=== PATIENT | female | born 1965 | race Caucasian/White ===

== ENCOUNTER 2018-12-22 17:05 | Emergency (ER) | payer OTHER ==
[2018-12-22] MEDS ORDERED: Bacitracin Oint 1 GM U/D Packet TOP ONE (17:26)
[2018-12-22 17:42] VITALS: BP 162/94; PULSE 82
--- NOTE | 2018-12-22 18:24 | EDM.PDOC ---
ED HPI GENERAL MEDICAL PROBLEM - General Chief Complaint: Laceration Stated Complaint: CUT LEFT INDEX FINGER Time Seen by Provider: 12/22/18 17:30 Source of Information: Reports: Patient History Limitations: Reports: No Limitations - History of Present Illness INITIAL COMMENTS - FREE TEXT/NARRATIVE: 53-year-old female cut her left index finger on a knife while cleaning dishes. 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: - Past Surgical History HEENT Surgical History: Reports: Tonsillectomy Social & Family History - Tobacco Use Smoking Status *Q: Never Smoker - Caffeine Use Caffeine Use: Reports: None - Recreational Drug Use Recreational Drug Use: No ED ROS GENERAL - Review of Systems Review Of Systems: See Below Constitutional: Denies: Fever Respiratory: Reports: No Symptoms Cardiovascular: Reports: No Symptoms GI/Abdominal: Reports: No Symptoms Neurological: Reports: Other (Concerned about syncope during the procedure, faints easy) ED EXAM, SKIN/RASH Exam: See Below Exam Limited By: No Limitations General Appearance: Alert, No Apparent Distress, Anxious Respiratory/Chest: No Respiratory Distress Extremities: Other (Remainder of exam is limited to left hand. On the palmar surface the patient has a 2.5 cm transverse laceration across the DIP joint. She can flex the distal aspect of the finger but it is numb.) Course - Vital Signs Last Recorded V/S: Last Vital Signs Temp 97.7 F 12/22/18 17:33 Pulse 82 12/22/18 17:33 Resp 16 12/22/18 17:33 BP 162/94 H 12/22/18 17:33 Pulse Ox 96 12/22/18 17:33 - Orders/Labs/Meds Meds: Medications Discontinued Medications Generic Name Dose Route Start Last Admin Trade Name Freq PRN Reason Stop Dose Admin Bacitracin 1 dose 12/22/18 17:26 07/18/19 17:31 Bacitracin Oint 1 Gm TOP 12/22/18 17:27 1 dose ONETIME ONE Administration Lidocaine HCl 5 ml 12/22/18 17:26 12/22/18 17:31 Xylocaine-Mpf 1% INJECT 12/22/18 17:27 5 ml ONETIME ONE Administration - Re-Assessments/Exams Free Text/Narrative Re-Assessment/Exam: 12/22/18 18:19 The area was anesthetized with 1% lidocaine, washed thoroughly with saline and a tourniquet was applied to the finger. While the tourniquet was in place the wound was inspected and the flexor digitorum profundus tendon appears to be lacerated completely. 5 4-0 Ethilon sutures were used to loosely close the laceration. 12/22/18 18:21 Topical bacitracin and a Band-Aid was applied and AlumaFoam splint was used to splint the finger after consultation with orthopedic surgery at [facility] in [place]. Patient was given a number to call tomorrow to talk to the hand surgery department in [place] to arrange an evaluation and possible surgery. She'll be placed on cephalexin 500 mg 3 times a day. Departure - Departure Time of Disposition: 18:49 Disposition: Home, Self-Care 01 Clinical Impression: Laceration of index finger Qualifiers: Encounter type: initial encounter Damage to nail status: without damage Foreign body presence: without foreign body Laterality: left Qualified Code(s): S61.211A - Laceration without foreign body of left index finger without damage to nail, initial encounter Flexor tendon laceration of finger with open wound Qualifiers: Encounter type: initial encounter Qualified Code(s): S56.129A - Laceration of flexor muscle, fascia and tendon of unspecified finger at forearm level, initial encounter - Discharge Information Instructions: Laceration Care, Adult Referrals: PCP,None [Primary Care Provider] - Forms: ED Department Discharge Care Plan Goals: Keep splint on finger, take antibiotics as prescribed, and call [phone] tomorrow morning to set up an appointment for an evaluation with hand surgery in [place].
== END 2018-12-22 18:49 | disposition home or self-care (01) ==
LOC: JP.ED 17:05
DX: S66.121A Laceration of flexor muscle, fascia and tendon of left index finger at wrist and hand level, initial encounter (principal); S61.211A Laceration without foreign body of left index finger without damage to nail, initial encounter; Z98.890 Other specified postprocedural states; W26.0XXA Contact with knife, initial encounter
CPT/HCPCS: 12001; 99282; J2001; 99283